=== PATIENT | female | born 1970 | race Caucasian/White ===

== ENCOUNTER 2020-12-10 09:31 | Emergency (ER) | payer BC, OTHER ==
[~2020-12-10] VITALS: Ht 162.6 cm; Wt 78.2 kg
[~2020-12-10 09:31] MED LIST: ALPR2TAB1 PO
[2020-12-10 09:34] VITALS: BP 135/90
[2020-12-10 10:20] VITALS: BP 135/90
== END 2020-12-10 10:16 | disposition left against medical advice (07) ==
LOC: MED 09:31
DX: N63.0 Unspecified lump in unspecified breast (principal); Z79.899 Other long term (current) drug therapy
CPT/HCPCS: 99281

== ENCOUNTER 2021-06-03 02:54 | Emergency (ER) | payer OTHER ==
[~2021-06-03] VITALS: Ht 162.6 cm; Wt 68.0 kg
[2021-06-03 02:55] VITALS: BP 176/100
--- NOTE | 2021-06-03 02:58 | NUR ---
TO LOBBY A/W BED AMBULATORY
--- NOTE | 2021-06-03 03:50 | NUR ---
SEEN AND EXAMINED BY ROXANNE
[2021-06-03] MEDS ORDERED: HYDR-636 PO (03:59)
[2021-06-03] MEDS ORDERED: LORazepam 1 MG TAB PO ONE (04:00)
--- NOTE | 2021-06-03 04:00 | NUR ---
MEDICATED PER ERMDS ORDER, TOLERATED WELL.
[2021-06-03 04:30] VITALS: BP 143/89
== END 2021-06-03 04:30 | disposition home or self-care (01) ==
LOC: MED 02:54
DX: F41.0 Panic disorder [episodic paroxysmal anxiety] (principal); Z79.899 Other long term (current) drug therapy
CPT/HCPCS: 99283